=== PATIENT | female | born 2005 | race Caucasian/White ===

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

== ENCOUNTER 2025-04-06 14:35 | Emergency (ER) | payer MEDICAID, SELFPAY ==
[2025-04-06 14:36] VITALS: BP 137/95; PULSE 70; RESP 14; TEMP 36.8; O2SAT 98; BMI 49.9
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
[2025-04-06 15:36] VITALS: BP 132/74; PULSE 69; RESP 14; O2SAT 99
[2025-04-06 15:39] LABS: Internal QC Validated? YES +Cl - CLEAR BKGD; Pregnancy, Serum, hCG Quali. NEGATIVE Negative; Record Kit Lot#, Serum Preg. 980607
[2025-04-06 15:50] LABS: Hematocrit 39.2 % (37-47); Hemoglobin 12.0 g/dL (12.0-15.0); Immature Granulocytes Count 0.010 X10^3/uL (0.0-0.0); Mean Corp Hgb Conc 30.6 g/dL (32-36); Mean Corpuscular Volume 79.4 fL (81-99); Mean Platelet Vol. 10.7 fl (6.2-12.0); NRBC Flagged by Analyzer 0 % (0-5); Platelet Count 366 K/mm3 (150-450); RBC Distribution Width CV 14.6 % (11.6-14.6); RBC Distribution Width SD 41.7 fl (35.1-43.9); Red Blood Count 4.94 M/mm3 (4.2-5.4); White Blood Count 7.5 K/mm3 (4.4-11.0)
[2025-04-06 15:59] LABS: Anion Gap 12 (5-15); BUN 11 mg/dL (4-19); BUN/Creat Ratio 17.1 RATIO (10-20); Calcium,Total 9.4 mg/dL (7.6-11.0); Carbon Dioxide 24.3 mmol/L (21.0-32.0); Chloride 104 mmol/L (98-108); Estimated Creatinine Clearance 169.67 ml/min (50-250); Glucose 104 mg/dL (70-99); Potassium 3.7 mmol/L (3.3-5.1)
[2025-04-06 16:00] VITALS: BP 115/80; PULSE 71; RESP 14; O2SAT 98
[2025-04-06 16:14] LABS: Alcohol, Blood (Medical)-Serum < 10.1 mg/dL (<=10.0)
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
[2025-04-06 17:00] VITALS: BP 141/79; PULSE 81; RESP 14; O2SAT 99
[2025-04-06 17:31] LABS: Barbiturate Urine NEGATIVE (< 200 ng/mL); Benzodiazepine Urine NEGATIVE (< 200 ng/mL); PCP Urine NEGATIVE (< 25 ng/mL); THC Urine NEGATIVE (< 50 ng/mL)
--- NOTE | 2025-04-06 17:32 | EKG12_ITS ---
Test Reason : Blood Pressure : */* mmHG Vent. Rate : 80 BPM Atrial Rate : 80 BPM P-R Int : 144 ms QRS Dur : 90 ms QT Int : 380 ms P-R-T Axes : 18 43 18 degrees QTcB Int : 438 ms Normal sinus rhythm with sinus arrhythmia Normal ECG Confirmed by SIDDHARTHA PEÑA, FOREIGN ([id number]), photograph editor CHILANGO AGRAWAL ([id number]) on 04/08/2025 9:04:44 AM Referred By: Confirmed By: FOREIGN CARL MD
--- NOTE | 2025-04-06 18:58 | ED.RN ---
REPORT CALLED TO [facility] NURSE [facility] AT THIS TIME.
[2025-04-06 18:59] VITALS: BP 123/79; PULSE 63; RESP 18; TEMP 37.2; O2SAT 100
--- NOTE | 2025-04-06 19:14 | CM.ED ---
Social Work Referral sent to [place]. EKG requested, same completed and results sent. Patient was accepted to [facility] unit. N2N [id number], accepting physician is Dr. Rose. [facility] slip sent. Patient and patients mother notified of accepting facility and transportation time. No further needs at this time. Noris Escudero, COPY CHASER, HIDE SALTER
== END 2025-04-06 21:01 ==
PROVIDERS: Emergency Provider Emergency Medicine; PCP Pediatrics; Visit Provider Emergency Medicine
DX: R45.851 Suicidal ideations (principal); F32.A Depression, unspecified
CPT/HCPCS: 80048; 80307; 82077; 84703; 85025; 93005; 99285